=== PATIENT | male | born 1940 | race Caucasian/White ===

== ENCOUNTER → 2016-05-26 | Outpatient (CLI) | payer MEDICARE, BC ==
[~2016-05-26] MED LIST: AMBIEN 5MG TABLE5 MG PO; ASPIRIN 81M81 MG/TA2 PO; BACTRIM DS 8001 TAB PO; BIOTEN PO; BYSTOLIC5 MG PO; CARDI-OMEGA1000 MG PO; CARDURA 8MG TAB8 MG PO; DEPO-TESTOS100 MG/ML IM; FLAGYL500 MG PO; FLOMAX 0.40.4 MG/CAP PO; GLUCOPHAGE XR500 M1 PO; GLUCOPHAGE500 MG/TAB PO; GLUCOTROL 5M5 MG/TAB PO; LAMICTAL200 MG PO; LEVEMIR100 U/ML SQ; LIPITOR 10MG10 MG PO; LUTEIN6 MG OU; MAGNESIUM250 M1 PO; MASON NATURAL1200 MG PO; MIRAPEX0.25 MG PO; PROSCAR 5MG5 MG PO; PROZAC 20MG20 MG PO; RITALIN 20M20 MG/TAB PO; RITALIN10 MG PO; SINEMET 25/101 UDTAB PO; TESTOSTERONE CYP INJ; TESTOSTERONE INJ; VOLTAREN GEL 1%1 TU TP; ZESTRIL 10MG10 MG PO; ZOFRAN ODT4 MG PO
== END ==
LOC: SUN.DIA 05-13 11:41
DX: E11.65 Type 2 diabetes mellitus with hyperglycemia (principal); E11.40 Type 2 diabetes mellitus with diabetic neuropathy, unspecified; Z79.4 Long term (current) use of insulin; Z79.84 Long term (current) use of oral hypoglycemic drugs; Z68.33 Body mass index [BMI] 33.0-33.9, adult; E66.9 Obesity, unspecified; Z71.3 Dietary counseling and surveillance; E78.5 Hyperlipidemia, unspecified; I10 Essential (primary) hypertension

== ENCOUNTER 2016-06-06 06:16 | Emergency (ER) | payer MEDICARE, BC ==
[~2016-06-06] VITALS: Ht 188 cm; Wt 118.2 kg
[~2016-06-06 06:16] MED LIST changes: -ASPIRIN 81M81 MG/TA2 PO; -BACTRIM DS 8001 TAB PO; -BIOTEN PO; -CARDI-OMEGA1000 MG PO; -DEPO-TESTOS100 MG/ML IM; -FLAGYL500 MG PO; -FLOMAX 0.40.4 MG/CAP PO; -GLUCOPHAGE XR500 M1 PO; -GLUCOTROL 5M5 MG/TAB PO; -LEVEMIR100 U/ML SQ; -LUTEIN6 MG OU; -MAGNESIUM250 M1 PO; -MASON NATURAL1200 MG PO; -RITALIN 20M20 MG/TAB PO; -SINEMET 25/101 UDTAB PO; -TESTOSTERONE CYP INJ; -VOLTAREN GEL 1%1 TU TP; -ZESTRIL 10MG10 MG PO; -ZOFRAN ODT4 MG PO
[2016-06-06 06:19] VITALS: TEMP 98.3
[2016-06-06] MEDS ORDERED: GLUCOTROL 5M5 MG/TAB PO (06:27)
[2016-06-06] MEDS ORDERED: DEPO-TESTOS100 MG/ML IM (06:35)
[2016-06-06] MEDS ORDERED: GLUCOPHAGE XR500 M1 PO (06:37)
[2016-06-06] MEDS ORDERED: VOLTAREN GEL 1%1 TU TP (06:37)
[2016-06-06] MEDS ORDERED: LEVEMIR100 U/ML SQ (06:58)
[2016-06-06] MEDS ORDERED: SINEMET 25/101 UDTAB PO (07:01)
[2016-06-06 07:03] LABS: BASO % 0.3 % (0.0-2.0); EOS # 0.2 (0.0-0.7); EOS % 1.8 % (0-4.0); GRAN # 6.2 (1.4-6.5); GRAN % 63.4 % (42.2-75.2); HEMATOCRIT 44.7 % (42.0-52.0); LYMPH # 2.4 (1.2-3.4); LYMPH % 23.9 % (20.0-51.0); MEAN CELL VOLUME 90 fl (80.0-100.0); MEAN CORPUSCULAR HEMOGLOBIN 30 pg (27.0-31.0); MEAN CORPUSCULAR HGB CONC 34 g/dl (33.0-37.0); MEAN PLATELET VOLUME 10.7 fl (7.4-10.4); MONO % 10.1 % (1.7-9.3); PLATELET COUNT 214 K/mm3 (130-400); RED BLOOD COUNT 4.98 M/mm3 (4.20-5.60); REDCELL DISTRIBUTION WIDTH-CV 14.2 % (11.5-14.5); WHITE BLOOD COUNT 9.8 K/mm3 (4.8-10.8)
[2016-06-06] MEDS ORDERED: RITALIN 20M20 MG/TAB PO (07:04)
[2016-06-06] MEDS ORDERED: CARDI-OMEGA1000 MG PO (07:06)
[2016-06-06] MEDS ORDERED: FLOMAX 0.40.4 MG/CAP PO (07:10)
[2016-06-06 07:15] LABS: ADJUSTED CALCIUM 9.3 mg/dL (8.4-10.2); ALBUMIN 3.8 gm/dL (3.5-5.0); BILIRUBIN,TOTAL 0.8 mg/dL (0.0-1.0); CALCIUM 9.1 mg/dL (8.4-10.2); CREATININE, serum 1.04 mg/dL (0.66-1.25); POTASSIUM 4.2 mmol/L (3.4-5.0); TOTAL PROTEIN 6.6 gm/dL (6.4-8.2)
[2016-06-06 07:29] LABS: PH 5 (5-8); SQUAMOUS EPITHELIAL 0-2 /hpf; URINE APPEARANCE Clear; URINE BACTERIA None Seen /hpf; URINE BILIRUBIN Negative (NEGATIVE); URINE BLOOD Negative (NEGATIVE); URINE COLOR Yellow; URINE GLUCOSE 3+ (NEGATIVE); URINE KETONE Negative (NEGATIVE); URINE RBC 0-2 /hpf; URINE UROBILINOGEN Negative (NEGATIVE); URINE WBC 0-2 /hpf
[2016-06-06] MEDS ORDERED: BACTRIM DS 8001 TAB PO (08:37)
[2016-06-06] MEDS ORDERED: FLAGYL500 MG PO (08:37)
[2016-06-06] MEDS ORDERED: ZOFRAN ODT4 MG PO (08:38)
[2016-06-06 08:55] VITALS: BP 152/94; PULSE 75
== END 2016-06-06 08:55 | disposition home or self-care (01) ==
LOC: COL.ER 06:16
PROVIDERS: Family Medicine
DX: K57.32 Diverticulitis of large intestine without perforation or abscess without bleeding (principal); E11.9 Type 2 diabetes mellitus without complications; I10 Essential (primary) hypertension
CPT/HCPCS: J7030; Q9967

== ENCOUNTER → 2016-08-26 | Outpatient (CLI) | payer MEDICARE, BC ==
[~2016-08-26] MED LIST changes: +ASPIRIN 81M81 MG/TA2 PO; +BACTRIM DS 8001 TAB PO; +BIOTEN PO; +CARDI-OMEGA1000 MG PO; +DEPO-TESTOS100 MG/ML IM; +FLAGYL500 MG PO; +FLOMAX 0.40.4 MG/CAP PO; +GLUCOPHAGE XR500 M1 PO; +GLUCOTROL 5M5 MG/TAB PO; +LEVEMIR100 U/ML SQ; +LUTEIN6 MG OU; +MAGNESIUM250 M1 PO; +MASON NATURAL1200 MG PO; +RITALIN 20M20 MG/TAB PO; +SINEMET 25/101 UDTAB PO; +TESTOSTERONE CYP INJ; +VOLTAREN GEL 1%1 TU TP; +ZESTRIL 10MG10 MG PO; +ZOFRAN ODT4 MG PO
== END ==
LOC: SUN.DIA 11:57
DX: E11.40 Type 2 diabetes mellitus with diabetic neuropathy, unspecified (principal); Z79.4 Long term (current) use of insulin; E78.5 Hyperlipidemia, unspecified; I10 Essential (primary) hypertension; E66.9 Obesity, unspecified; Z71.3 Dietary counseling and surveillance; Z87.891 Personal history of nicotine dependence

== ENCOUNTER → 2016-09-01 | Outpatient (CLI) | payer MEDICARE, BC | LOC: BHSO 15:22 | DX: F41.1 Generalized anxiety disorder (principal) ==

== ENCOUNTER 2016-09-29 07:01 | Day surgery (SDC) | payer MEDICARE, BC ==
[2016-09-29] VITALS (7 sets, daily range): BP systolic 93–146; BP diastolic 50–87; PULSE 67–75; TEMP 98.9
[~2016-09-29] VITALS: Ht 188 cm; Wt 116.6 kg
[~2016-09-29 07:01] MED LIST changes: -ASPIRIN 81M81 MG/TA2 PO; -BIOTEN PO; -LUTEIN6 MG OU; -MAGNESIUM250 M1 PO; -MASON NATURAL1200 MG PO; -TESTOSTERONE CYP INJ; -ZESTRIL 10MG10 MG PO
[2016-09-29] MEDS ORDERED: MASON NATURAL1200 MG PO (08:53)
[2016-09-29] MEDS ORDERED: ASPIRIN 81M81 MG/TA2 PO (08:55)
[2016-09-29] MEDS ORDERED: MAGNESIUM250 M1 PO (08:57)
[2016-09-29] MEDS ORDERED: LUTEIN6 MG OU (08:58)
[2016-09-29] MEDS ORDERED: MIRAPEX0.25 MG PO (09:01)
[2016-09-29] MEDS ORDERED: BIOTEN PO (09:04)
[2016-09-29] MEDS ORDERED: TESTOSTERONE CYP INJ (09:09)
[2016-09-29] MEDS ORDERED: ZESTRIL 10MG10 MG PO (09:10)
== END 2016-09-29 10:37 | disposition home or self-care (01) ==
LOC: SDCO 07:01
DX: Z12.11 Encounter for screening for malignant neoplasm of colon (principal); K57.30 Diverticulosis of large intestine without perforation or abscess without bleeding; K64.0 First degree hemorrhoids; G47.33 Obstructive sleep apnea (adult) (pediatric); I10 Essential (primary) hypertension; E11.40 Type 2 diabetes mellitus with diabetic neuropathy, unspecified; L40.9 Psoriasis, unspecified; Z79.4 Long term (current) use of insulin
CPT/HCPCS: OP; J2250; J2405; J3010; J7030

== ENCOUNTER → 2016-12-23 | Outpatient (CLI) | payer MEDICARE, BC ==
[~2016-12-23] MED LIST changes: +ASPIRIN 81M81 MG/TA2 PO; +BIOTEN PO; +LUTEIN6 MG OU; +MAGNESIUM250 M1 PO; +MASON NATURAL1200 MG PO; +TESTOSTERONE CYP INJ; +ZESTRIL 10MG10 MG PO
== END ==
LOC: BHSO 16:03
DX: F31.73 Bipolar disorder, in partial remission, most recent episode manic (principal)

== ENCOUNTER → 2016-12-30 | Outpatient (CLI) | payer MEDICARE, BC | LOC: SUN.DIA 10:53 | DX: E11.40 Type 2 diabetes mellitus with diabetic neuropathy, unspecified (principal); Z79.4 Long term (current) use of insulin; E78.5 Hyperlipidemia, unspecified; I10 Essential (primary) hypertension; E66.9 Obesity, unspecified; Z68.33 Body mass index [BMI] 33.0-33.9, adult; Z71.3 Dietary counseling and surveillance; Z87.891 Personal history of nicotine dependence | CPT/HCPCS: G0108 ==

== ENCOUNTER → 2017-06-08 | Outpatient (CLI) | payer MEDICARE, BC ==
[~2017-06-08] MED LIST changes: +BYSTOLIC10 MG PO; +FISH OIL 1000MG1 CAP PO; +LIPITOR20 MG PO; +OMNICEF 300MG300 MG PO; +PHENERGAN W/CO120 M1 PO; +PRINIVIL20 MG PO; +TAMIFLU 75MG75 MG PO
== END ==
LOC: BHSO 09:01
DX: F90.0 Attention-deficit hyperactivity disorder, predominantly inattentive type (principal)
CPT/HCPCS: G0463

== ENCOUNTER 2017-06-21 08:00 | Outpatient (RCR) | payer MEDICARE | END 2017-07-19 13:48 | disposition home or self-care (01) | LOC: MKS.ESL.PT 08:00 | DX: E11.42 Type 2 diabetes mellitus with diabetic polyneuropathy (principal) ==

== ENCOUNTER 2017-07-13 12:30 | Outpatient (RCR) | payer MEDICARE, BC | END 2017-07-19 13:48 | disposition home or self-care (01) | LOC: MKS.ESL.PT 12:30 | DX: E11.42 Type 2 diabetes mellitus with diabetic polyneuropathy (principal); R26.89 Other abnormalities of gait and mobility | CPT/HCPCS: G8990-GP; G8991-GP; G8992-GP ==

== ENCOUNTER 2017-07-28 08:25 | Outpatient (CLI) | payer MEDICARE, BC ==
[~2017-07-28] VITALS: Ht 188 cm; Wt 116.0 kg
[2017-07-28 08:30] VITALS: BP 140/78; PULSE 64; TEMP 98.3
[2017-07-28] MEDS ORDERED: PRINIVIL10 MG PO (08:49)
[2017-07-28] MEDS ORDERED: MAXIMUM D310000 IU PO (08:50)
[2017-07-28] MEDS ORDERED: ARICEPT 5MG PO (08:52)
[2017-07-28] MEDS ORDERED: MELATONIN5 M1 PO (08:53)
[2017-07-28] MEDS ORDERED: CEPHALEXIN500 M1 PO (09:21)
[2017-07-28 09:54] VITALS: BP 134/73; PULSE 71; TEMP 98.2
== END 2017-07-28 09:58 | disposition home or self-care (01) ==
LOC: COL.CAR 08:25
DX: I48.0 Paroxysmal atrial fibrillation (principal); R55 Syncope and collapse; I10 Essential (primary) hypertension; G47.00 Insomnia, unspecified; F32.9 Major depressive disorder, single episode, unspecified; G20 Parkinson's disease; N40.0 Benign prostatic hyperplasia without lower urinary tract symptoms; E11.42 Type 2 diabetes mellitus with diabetic polyneuropathy; K76.0 Fatty (change of) liver, not elsewhere classified; I08.3 Combined rheumatic disorders of mitral, aortic and tricuspid valves; E78.2 Mixed hyperlipidemia; I49.1 Atrial premature depolarization; I47.2 Ventricular tachycardia; Z79.4 Long term (current) use of insulin; Z79.52 Long term (current) use of systemic steroids; Z98.52 Vasectomy status; Z88.1 Allergy status to other antibiotic agents; Z88.8 Allergy status to other drugs, medicaments and biological substances; Z85.828 Personal history of other malignant neoplasm of skin; Z82.49 Family history of ischemic heart disease and other diseases of the circulatory system; Z82.3 Family history of stroke; Z87.891 Personal history of nicotine dependence

== ENCOUNTER → 2017-11-11 | Outpatient (CLI) | payer MEDICARE, BC ==
[~2017-11-11] MED LIST changes: +ARICEPT 5MG PO; +CEPHALEXIN500 M1 PO; +MAXIMUM D310000 IU PO; +MELATONIN5 M1 PO; +PRINIVIL10 MG PO
== END ==
LOC: BHSO 14:45
DX: F90.0 Attention-deficit hyperactivity disorder, predominantly inattentive type (principal)
CPT/HCPCS: G0463

== ENCOUNTER → 2018-01-11 | Outpatient (CLI) | payer MEDICARE, BC | LOC: BHSO 14:15 | DX: F90.0 Attention-deficit hyperactivity disorder, predominantly inattentive type (principal) | CPT/HCPCS: G0463 ==

== ENCOUNTER → 2018-03-10 | Outpatient (CLI) | payer MEDICARE, BC | LOC: BHSO 14:21 | DX: F90.0 Attention-deficit hyperactivity disorder, predominantly inattentive type (principal) | CPT/HCPCS: G0463 ==

== ENCOUNTER → 2018-05-09 | Outpatient (CLI) | payer MEDICARE, BC | LOC: COL.RAD 13:52 | DX: G20 Parkinson's disease (principal); E11.42 Type 2 diabetes mellitus with diabetic polyneuropathy; G25.81 Restless legs syndrome ==

== ENCOUNTER → 2018-05-10 | Outpatient (CLI) | payer MEDICARE, BC | LOC: BHSO 13:59 | DX: F33.41 Major depressive disorder, recurrent, in partial remission (principal) | CPT/HCPCS: G0463 ==

== ENCOUNTER 2018-08-05 13:24 | Emergency (ER) | payer MEDICARE, BC ==
[~2018-08-05] VITALS: Ht 185.4 cm; Wt 113.6 kg
[2018-08-05 13:29] VITALS: TEMP 98.8
[2018-08-05 16:40] VITALS: BP 118/64; PULSE 67
== END 2018-08-05 16:50 | disposition home or self-care (01) ==
LOC: COL.ER 13:24
DX: S06.0X0A Concussion without loss of consciousness, initial encounter (principal); S93.402A Sprain of unspecified ligament of left ankle, initial encounter; S80.02XA Contusion of left knee, initial encounter; S00.81XA Abrasion of other part of head, initial encounter; E11.42 Type 2 diabetes mellitus with diabetic polyneuropathy; I48.91 Unspecified atrial fibrillation; F90.9 Attention-deficit hyperactivity disorder, unspecified type; G20 Parkinson's disease; Z79.01 Long term (current) use of anticoagulants; Z79.4 Long term (current) use of insulin; Z79.82 Long term (current) use of aspirin; Z87.891 Personal history of nicotine dependence; W10.9XXA Fall (on) (from) unspecified stairs and steps, initial encounter

== ENCOUNTER → 2018-11-24 | Outpatient (CLI) | payer MEDICARE, BC | LOC: BHSO 09:21 | DX: F33.41 Major depressive disorder, recurrent, in partial remission (principal) | CPT/HCPCS: G0463 ==

== ENCOUNTER 2019-01-10 16:49 | Inpatient (IN) | payer MEDICARE, BC ==
[~2019-01-10] VITALS: Ht 188 cm; Wt 118.0 kg
[2019-01-10 17:33] LABS: HEMATOCRIT 38.1 % (42.0-52.0); HEMOGLOBIN 12.3 g/dl (13.5-18.0); MEAN CELL VOLUME 87 fl (80.0-100.0); MEAN CORPUSCULAR HEMOGLOBIN 28 pg (27.0-31.0); MEAN CORPUSCULAR HGB CONC 32 g/dl (33.0-37.0); MEAN PLATELET VOLUME 10.5 fl (7.4-10.4); PLATELET COUNT 206 K/mm3 (130-400); RED BLOOD COUNT 4.38 M/mm3 (4.20-5.60); REDCELL DISTRIBUTION WIDTH-CV 14.6 % (11.5-14.5)
[2019-01-10 17:37] LABS: PROTHROMBIN TIME 11.6 SECONDS (9.7-12.8)
[2019-01-10 17:40] LABS: PARTIAL THROMBOPLASTIN TIME 27.8 SECONDS (26.0-37.0)
[2019-01-10 17:41] LABS: ALANINE AMINOTRANSFERASE 17 U/L (21-72); ALBUMIN 4.3 gm/dL (3.5-5.0); ALKALINE PHOSPHATASE 76 U/L (50-136); ANION GAP 10 mmol/L (7-16); AST,SGOT 32 U/L (15-37); BILIRUBIN,TOTAL 0.3 mg/dL (0.0-1.0); BLOOD UREA NITROGEN 35 mg/dL (9-20); C-REACTIVE PROTEIN 0.8 mg/dL (0.0-0.9); CALCIUM 9.6 mg/dL (8.4-10.2); CARBON DIOXIDE 24 mmol/L (22-30); CHLORIDE 103 mmol/L (98-107); CREATININE, serum 1.95 (0.66-1.25); GLUCOSE 326 mg/dL (74-106); POTASSIUM 5.2 mmol/L (3.4-5.0); SODIUM 137 mmol/L (137-145)
[2019-01-10 17:50] LABS: TROPONIN-I < 0.012 ng/mL (0.000-0.035)
[2019-01-10 18:01] LABS: ANISOCYTOSIS 1+; BAND 2 % (0-10); EOSINOPHIL 1 % (0-4); LYMPHOCYTE 18 % (20.0-51.0); METAMYELOCYTE 1 % (0-0); MICROCYTOSIS 1+; NEUTROPHILS 72 % (42.0-75.2); OVALOCYTES 1+; PLATELET ESTIMATE NORMAL (NORMAL); STOMATOCYTE 1+
[2019-01-10 18:02] LABS: POIKILOCYTOSIS 1+
--- NOTE | 2019-01-10 19:45 | NUR ---
Pt arrived to room 309, transfered by ED staff. at bedside. Pt awake, a&o, cooperative c cares. INTx2 patent; heparin gtt infusing. Pt/wi oriented to room, unit policies et current POC. Questions invited et answered, both verbalize understanding. Pt denies needs at this time. Call light in reach. Will continue c admit process.
[2019-01-10 21:07] VITALS: BP 103/74; PULSE 88; TEMP 98.2
[2019-01-10] MEDS ORDERED: BYSTOLIC20 MG PO (21:07)
[2019-01-10] MEDS ORDERED: ZOLOFT 100MG100 MG PO (21:22)
[2019-01-10] MEDS ORDERED: BIOTIN5000 MCG PO (21:23)
[2019-01-10] MEDS ORDERED: VITAMIN D32000 I1 PO (21:27)
[2019-01-10 23:31] LABS: ARTERIAL BLD GAS O2 SATURATION 94.5 % (92-100); ARTERIAL BLD GAS TCO2 CT 22.8; ARTERIAL BLOOD GAS BASE EXCESS -3.5 (-2-2); ARTERIAL BLOOD GAS HCO3 21.6 meq/L (22-26); ARTERIAL BLOOD GAS PCO2 39.4 mmHg (35-45); ARTERIAL BLOOD GAS PO2 75.8 mmHg (80-100); ARTERIAL BLOOD GAS pH 7.36 (7.35-7.45)
[2019-01-10 23:41] VITALS: BP 103/60; PULSE 90; TEMP 98.1
[2019-01-11 02:33] LABS: COLLECTION METHOD CLEAN CATCH
[2019-01-11 02:41] LABS: MUCOUS Present /lpf; PH 5 (5-8); SQUAMOUS EPITHELIAL None Seen /hpf; URINE APPEARANCE Clear; URINE BACTERIA None Seen /hpf; URINE BILIRUBIN Negative (NEGATIVE); URINE BLOOD Negative (NEGATIVE); URINE COLOR Yellow; URINE GLUCOSE 2+ (NEGATIVE); URINE KETONE Negative (NEGATIVE); URINE LEUKOCYTE ESTERASE Negative (NEGATIVE); URINE NITRATE Negative (NEGATIVE); URINE PROTEIN(semi-quant) Negative (NEGATIVE); URINE RBC 0-2 /hpf; URINE UROBILINOGEN Negative (NEGATIVE)
[2019-01-11 04:08] VITALS: BP 97/57; PULSE 79; TEMP 98.3
[2019-01-11 04:08] LABS: CREATININE, serum 1.42 (0.66-1.25)
[2019-01-11 04:28] LABS: FRACTIONAL EXCRETION OF NA+ 1.9 %
[2019-01-11 06:33] LABS: HEMOGLOBIN 10.8 g/dl (13.5-18.0); MEAN CELL VOLUME 87 fl (80.0-100.0); MEAN CORPUSCULAR HEMOGLOBIN 28 pg (27.0-31.0); MEAN CORPUSCULAR HGB CONC 32 g/dl (33.0-37.0); MEAN PLATELET VOLUME 10.6 fl (7.4-10.4); PLATELET COUNT 160 K/mm3 (130-400); REDCELL DISTRIBUTION WIDTH-CV 14.8 % (11.5-14.5)
[2019-01-11 07:15] LABS: CALCIUM 8.6 mg/dL (8.4-10.2); CREATININE, serum 1.37 (0.66-1.25); POTASSIUM 4.6 mmol/L (3.4-5.0)
[2019-01-11 07:37] LABS: BAND 7 % (0-10); BASOPHIL 1 % (0-2); EOSINOPHIL 4 % (0-4); LYMPHOCYTE 16 % (20.0-51.0); METAMYELOCYTE 1 % (0-0); NEUTROPHILS 69 % (42.0-75.2); PLATELET ESTIMATE NORMAL (NORMAL)
[2019-01-11 08:10] VITALS: BP 114/83; PULSE 69; TEMP 97.5
--- NOTE | 2019-01-11 11:00 | NUR ---
PACER INTERIGATION HAS BEEN PERFORMED AT THIS TIME.
--- NOTE | 2019-01-11 12:04 | NUR ---
SW met with the patient to discuss discharge plan. The patient lives in [place] with his , Adelina (ph#[phone]). He reports independence with ADLs and has a cane. The patient's PCP is Dr. Sugar Yousif and he receives his medications at [facility]. He reports no difficulties obtaining his meds. The patient's advanced directives are in EMR. His DPOA-HC is his and the alternate is his son, Lukasz Lee. The patient plans to return home upon discharge. The patient is currently on 2 liters of oxygen. SW to continue to monitor.
[2019-01-11 12:05] VITALS: BP 131/64; PULSE 63; TEMP 97.5
--- NOTE | 2019-01-11 13:29 | NUR ---
POST VOID BLADDER SCAN PERFOMED BY THIS NURSE. PT HAD 75ML OF URINE NOTED.
[2019-01-11 17:30] VITALS: BP 121/74; PULSE 61; TEMP 97.8
[2019-01-11 19:10] VITALS: BP 108/46; PULSE 73; TEMP 97.4
--- NOTE | 2019-01-11 19:23 | NUR ---
PT HAD UNEVENTFUL DAY. PLEASENT AND COOPERATIVE CARES. THIS NURSE PROVIDED PRINTED OFF EDUCATION ABOUT DX AND MEDICATION STARTED TODAY.
--- NOTE | 2019-01-11 20:45 | NUR ---
Shift assessment complete. Patient in bed, awake. at bedside. States, 7/10 pain in right hip. States the day RN gave him tylenol and it was not effective. Tylenol not documented in eMAR, or [facility] that it was given. Notified Dr. Hyatt for additional order for pain medicine d/t it being unclear whether he got tylenol or not. Prn norco ordered, and given. Patient ok with plan. Denies further needs at this time. Will continue to monitor.
[2019-01-12 00:09] VITALS: BP 102/50; PULSE 64; TEMP 98
[2019-01-12 03:20] VITALS: BP 128/49; PULSE 63; TEMP 97.8
--- NOTE | 2019-01-12 04:08 | NUR ---
Patient in bed, awake. States pain 2/10 after pain medication. Denies further needs at this time. Will continue to monitor.
[2019-01-12 07:11] LABS: MEAN CELL VOLUME 88 fl (80.0-100.0); MEAN CORPUSCULAR HEMOGLOBIN 28 pg (27.0-31.0); MEAN CORPUSCULAR HGB CONC 31 g/dl (33.0-37.0); MEAN PLATELET VOLUME 9.9 fl (7.4-10.4); PLATELET COUNT 142 K/mm3 (130-400); RED BLOOD COUNT 3.62 M/mm3 (4.20-5.60); REDCELL DISTRIBUTION WIDTH-CV 14.9 % (11.5-14.5)
[2019-01-12 07:15] LABS: HEMATOCRIT 31.8 % (42.0-52.0)
[2019-01-12 07:29] LABS: CALCIUM 8.6 mg/dL (8.4-10.2); CREATININE, serum 1.3 (0.66-1.25); POTASSIUM 4.5 mmol/L (3.4-5.0)
[2019-01-12 07:53] LABS: BAND 3 % (0-10); EOSINOPHIL 2 % (0-4); NEUTROPHILS 71 % (42.0-75.2); PLATELET ESTIMATE NORMAL (NORMAL)
[2019-01-12 07:54] LABS: LYMPHOCYTE 21 % (20.0-51.0)
[2019-01-12 07:55] LABS: OVALOCYTES 1+; POLYCHROMASIA 1+; TEAR DROP CELLS 1+
[2019-01-12 08:00] VITALS: BP 112/59; PULSE 60; TEMP 97.9
--- NOTE | 2019-01-12 10:42 | NUR ---
Initial visit; Patient and his appeared pleased to have a visit from Arresting Gear Operator. A lively conversation with spiritual overtones ensued. Patient loves to talk and seemed to enjoy the diversion from his health issues. Arresting Gear Operator wished them well and offered God's blessings.
[2019-01-12 11:32] VITALS: BP 142/74; PULSE 59; TEMP 98.3
--- NOTE | 2019-01-12 16:25 | NUR ---
PT HAD C/O PAIN IN LT HIP, GAVE PAIN MED. PT REQUESTED TO WALK IN [place]. DID WELL USED A 4 WHEELED WALKER WITHOUT ISSUE. MADE PT A HOT PACK FOR PAIN. NO OTHER ISSUES VOICED.
[2019-01-12 16:26] VITALS: BP 116/60; PULSE 63; TEMP 97.9
--- NOTE | 2019-01-12 19:21 | NUR ---
PT HAD UNEVENTFUL DAY. PLEASENT AND COOPERATIVE WITH CARES. NOTIFIED NOC NURSE OF PT NEEDING A CPAP FOR THE NIGHT. PT HAS HAD 02 OFF AND ON THROUGHT THE DAY PRN. SATS DOCUMENTED. NO OTHER ISSUES OR CONCERNS VOICED.
[2019-01-12 19:56] VITALS: BP 128/60; PULSE 66; TEMP 97.7
--- NOTE | 2019-01-12 20:30 | NUR ---
Initial shift assessment done- states does have some right hip pain 05/22- states would like another [place] closer to bedtime, will have respiratory get a CPAP for him to use tonight per orders, INT fell out- new one started in left hand- 22 g
[2019-01-13 00:02] VITALS: BP 145/78; PULSE 59; TEMP 97.3
--- NOTE | 2019-01-13 04:30 | NUR ---
Anxious this morning- states he cant sleep- states right hip pain 10/22,,will give [place] as ordered, at bedside - did wear CPAP for about 2-3 hours but could not tolerate more due to the large confining mask on out CPAPS-, o2 sats 94% on 2L/nc. tele on
[2019-01-13 04:36] VITALS: BP 119/66; PULSE 60
[2019-01-13 07:47] VITALS: BP 125/76; PULSE 61; TEMP 97.5
[2019-01-13 08:36] LABS: BASO % 0.4 % (0.0-2.0); EOS # 0.2 (0.0-0.7); EOS % 2.7 % (0-4.0); GRAN # 5.2 (1.4-6.5); GRAN % 69.7 % (42.2-75.2); HEMOGLOBIN 11.2 g/dl (13.5-18.0); LYMPH # 1.2 (1.2-3.4); LYMPH % 16.3 % (20.0-51.0); MEAN CELL VOLUME 89 fl (80.0-100.0); MEAN CORPUSCULAR HEMOGLOBIN 28 pg (27.0-31.0); MEAN CORPUSCULAR HGB CONC 32 g/dl (33.0-37.0); MEAN PLATELET VOLUME 10.2 fl (7.4-10.4); MONO # 0.7 (0.1-0.6); MONO % 9.2 % (1.7-9.3); PLATELET COUNT 163 K/mm3 (130-400); RED BLOOD COUNT 4.02 M/mm3 (4.20-5.60); REDCELL DISTRIBUTION WIDTH-CV 15.2 % (11.5-14.5)
[2019-01-13 08:37] LABS: HEMATOCRIT 35.6 % (42.0-52.0)
[2019-01-13] MEDS ORDERED: XARELTO20 MG PO (09:00)
[2019-01-13] MEDS ORDERED: XARELTO15 MG PO (09:00)
[2019-01-13 09:01] LABS: CALCIUM 9.3 mg/dL (8.4-10.2); CREATININE, serum 1.3 (0.66-1.25); POTASSIUM 4.6 mmol/L (3.4-5.0)
--- NOTE | 2019-01-13 09:14 | NUR ---
SW attended clinical rounds with the team. A pulse oximetry was ordered. TRISTAN will continue to follow.
--- NOTE | 2019-01-13 09:23 | NUR ---
PT SPO2 83% AT REST ON ROOM AIR. PT PLACED ON 3L O2 VIA NC FOR SPO2 TO 92% PT NOT AMBULATED DUE TO DECREASED SPO2 AT REST.
--- NOTE | 2019-01-13 09:36 | NUR ---
SW presented the IM form to the patient. The patient understood and signed the form. Original was placed in the chart and a copy was provided to the patient. TRISTAN will continue to follow.
--- NOTE | 2019-01-13 10:56 | NUR ---
The patient is to discharge home today, 01/13. Oxygen is being recommended for the patient. TRISTAN met with the patient and his to present the DME choice form, their choice is [facility]. DME Form was placed in the chart. TRISTAN faxed the order to Margot at [facility]. Margot reports they did receive the order and she will begin to process it. There are no additional needs at this time.
--- NOTE | 2019-01-13 16:32 | NUR ---
Patient discharging, paperwork reviewed as long as instructions and medication information. These were discussed with and . Patient discharged at 1600 after home oxygen supply came to bring a travel tank for transport. Personal belongings gathered and taken with patient. Assisted to private vehicle via wheelchair and accompanied by via [facility] emergency department staff.
== END 2019-01-13 16:00 | disposition home or self-care (01) | DRG 175 ==
LOC: COL.ER 16:49 → MEDICAL 18:11
PROVIDERS: Emergency Medicine; Nurse Practitioner Family; Physician Assistant; ADMIT Student in an Organized Health Care Education/Training Program
PROC: 5A09457 Assistance with Respiratory Ventilation, 24-96 Consecutive Hours, Continuous Positive Airway Pressure (ICD-10-PCS; principal; 2019-01-10)
DX: I26.99 Other pulmonary embolism without acute cor pulmonale (principal); J96.91 Respiratory failure, unspecified with hypoxia; I82.401 Acute embolism and thrombosis of unspecified deep veins of right lower extremity; N17.9 Acute kidney failure, unspecified; I10 Essential (primary) hypertension; E78.5 Hyperlipidemia, unspecified; E11.42 Type 2 diabetes mellitus with diabetic polyneuropathy; G47.33 Obstructive sleep apnea (adult) (pediatric); F41.9 Anxiety disorder, unspecified; D64.9 Anemia, unspecified; G20 Parkinson's disease; N40.0 Benign prostatic hyperplasia without lower urinary tract symptoms; F90.9 Attention-deficit hyperactivity disorder, unspecified type; E87.5 Hyperkalemia; I48.0 Paroxysmal atrial fibrillation; Z87.891 Personal history of nicotine dependence; F03.90 Unspecified dementia, unspecified severity, without behavioral disturbance, psychotic disturbance, mood disturbance, and anxiety; Z79.4 Long term (current) use of insulin; Z79.82 Long term (current) use of aspirin; Z88.1 Allergy status to other antibiotic agents; Z88.8 Allergy status to other drugs, medicaments and biological substances
CPT/HCPCS: 99223-AI; 99233-AI; 99239; A9540; A9567; C9113; J1644; J1815; J7030

== ENCOUNTER → 2019-03-31 | Outpatient (CLI) | payer MEDICARE, BC ==
[~2019-03-31] MED LIST changes: +BIOTIN5000 MCG PO; +BYSTOLIC20 MG PO; +VITAMIN D32000 I1 PO; +XARELTO15 MG PO; +XARELTO20 MG PO; +ZOLOFT 100MG100 MG PO
== END ==
LOC: COL.VAS 13:54
DX: I82.531 Chronic embolism and thrombosis of right popliteal vein (principal)

== ENCOUNTER → 2019-07-13 | Outpatient (CLI) | payer MEDICARE, BC ==
[2019-07-13 11:43] LABS: CALCIUM 9.5 mg/dL (8.4-10.2); CREATININE, serum 1.18 (0.66-1.25); POTASSIUM 4.6 mmol/L (3.4-5.0)
== END ==
LOC: COL.RAD 10:43
PROVIDERS: Internal Medicine Pulmonary Disease
DX: I82.409 Acute embolism and thrombosis of unspecified deep veins of unspecified lower extremity (principal); I27.82 Chronic pulmonary embolism; K80.20 Calculus of gallbladder without cholecystitis without obstruction; K44.9 Diaphragmatic hernia without obstruction or gangrene; K76.0 Fatty (change of) liver, not elsewhere classified; E11.9 Type 2 diabetes mellitus without complications
CPT/HCPCS: Q9967

== ENCOUNTER → 2019-09-11 | Outpatient (CLI) | payer MEDICARE, BC | LOC: BHSO 15:28 | DX: F33.41 Major depressive disorder, recurrent, in partial remission (principal) | CPT/HCPCS: G0463 ==

== ENCOUNTER → 2019-11-29 | Outpatient (CLI) | payer MEDICARE, BC | LOC: BHSO 14:43 | DX: F90.0 Attention-deficit hyperactivity disorder, predominantly inattentive type (principal) | CPT/HCPCS: G0463 ==

== ENCOUNTER → 2020-02-29 | Outpatient (CLI) | payer MEDICARE, BC ==
[2020-02-29 16:01] LABS: CALCIUM 9.4 mg/dL (8.4-10.2); CREATININE, serum 1.09 (0.66-1.25); POTASSIUM 4.8 mmol/L (3.4-5.0)
== END ==
LOC: COL.LAB 15:03
PROVIDERS: Internal Medicine Pulmonary Disease
DX: I82.90 Acute embolism and thrombosis of unspecified vein (principal)

== ENCOUNTER → 2020-03-04 | Outpatient (CLI) | payer MEDICARE, BC | LOC: COL.RAD 12:54 | DX: I27.82 Chronic pulmonary embolism (principal); K44.9 Diaphragmatic hernia without obstruction or gangrene; K80.20 Calculus of gallbladder without cholecystitis without obstruction | CPT/HCPCS: Q9967 ==

== ENCOUNTER → 2020-03-13 | Outpatient (CLI) | payer MEDICARE, BC | LOC: COL.VAS 13:28 | DX: I82.90 Acute embolism and thrombosis of unspecified vein (principal); I51.7 Cardiomegaly; I34.0 Nonrheumatic mitral (valve) insufficiency; Z86.718 Personal history of other venous thrombosis and embolism ==

== ENCOUNTER 2020-12-28 10:03 | Emergency (ER) | payer MEDICARE, BC ==
[~2020-12-28] VITALS: Ht 188 cm; Wt 118.2 kg
[2020-12-28 10:10] VITALS: TEMP 99
[2020-12-28 11:45] VITALS: BP 135/80; PULSE 74
== END 2020-12-28 11:47 | disposition home or self-care (01) ==
LOC: COL.ER 10:03
DX: S63.602A Unspecified sprain of left thumb, initial encounter (principal); G20 Parkinson's disease; I10 Essential (primary) hypertension; E11.40 Type 2 diabetes mellitus with diabetic neuropathy, unspecified; I48.91 Unspecified atrial fibrillation; Z87.891 Personal history of nicotine dependence; Z79.01 Long term (current) use of anticoagulants; Z79.4 Long term (current) use of insulin; Z79.84 Long term (current) use of oral hypoglycemic drugs; Z79.82 Long term (current) use of aspirin; W01.0XXA Fall on same level from slipping, tripping and stumbling without subsequent striking against object, initial encounter

== ENCOUNTER 2021-04-23 10:11 | Emergency (ER) | payer MEDICARE, BC ==
[~2021-04-23] VITALS: Ht 185.4 cm; Wt 90.9 kg
[2021-04-23 10:31] VITALS: TEMP 98.5
[2021-04-23 11:11] LABS: BASO % 0.3 % (0.0-2.0); EOS # 0.2 K/mm3 (0.0-0.7); EOS % 3.1 % (0.0-4.0); GRAN # 4.8 K/mm3 (1.4-6.5); GRAN % 73.8 % (42.2-75.2); HEMATOCRIT 42.4 % (42.0-52.0); HEMOGLOBIN 13.3 g/dl (13.5-18.0); LYMPH # 0.9 K/mm3 (1.2-3.4); LYMPH % 14.2 % (20.0-51.0); MEAN CELL VOLUME 91 fl (80.0-100.0); MEAN CORPUSCULAR HEMOGLOBIN 29 pg (27-31); MEAN CORPUSCULAR HGB CONC 31 g/dl (33.0-37.0); MONO # 0.5 K/mm3 (0.1-0.6); MONO % 7.8 % (1.7-9.3); PLATELET COUNT 149 K/mm3 (130-400); RED BLOOD COUNT 4.66 M/mm3 (4.20-5.60); REDCELL DISTRIBUTION WIDTH-CV 17.7 % (11.5-14.5)
[2021-04-23 11:25] LABS: ALBUMIN 4.2 gm/dL (3.4-4.8); BILIRUBIN,TOTAL 0.5 mg/dL (0.2-1.2); CREATININE, serum 1.65 mg/dL (0.72-1.25); POTASSIUM 4.3 mmol/L (3.5-4.5); TOTAL PROTEIN 6.8 gm/dL (6.2-8.1)
[2021-04-23] MEDS ORDERED: NOVOLOG FLEX100 U/ML SQ (11:39)
[2021-04-23] MEDS ORDERED: CONCERTA18 MG (11:40)
[2021-04-23] MEDS ORDERED: MYRBETR50MG PO (11:41)
[2021-04-23] MEDS ORDERED: VESICARE10 MG (11:41)
[2021-04-23] MEDS ORDERED: DESYREL 50MG50 MG PO (11:41)
[2021-04-23] MEDS ORDERED: FISH OIL 1000MG1 CAP PO (11:43)
[2021-04-23] MEDS ORDERED: FEOSOL45 MG (11:43)
[2021-04-23 12:45] VITALS: BP 133/58; PULSE 60
[2021-04-23] MEDS ORDERED: ZITHROMAX Z PA250 MG PO (12:49)
== END 2021-04-23 13:03 | disposition home or self-care (01) ==
LOC: COL.ER 10:11
PROVIDERS: Family Medicine
DX: J20.9 Acute bronchitis, unspecified (principal); I10 Essential (primary) hypertension; E11.40 Type 2 diabetes mellitus with diabetic neuropathy, unspecified; I48.91 Unspecified atrial fibrillation; G20 Parkinson's disease; Z99.81 Dependence on supplemental oxygen; Z88.1 Allergy status to other antibiotic agents; Z20.822 Contact with and (suspected) exposure to COVID-19; Z79.01 Long term (current) use of anticoagulants; Z79.4 Long term (current) use of insulin; Z79.84 Long term (current) use of oral hypoglycemic drugs; Z79.82 Long term (current) use of aspirin; Z79.899 Other long term (current) drug therapy
CPT/HCPCS: J7120

== ENCOUNTER 2021-11-09 16:06 | Emergency (ER) | payer MEDICARE, BC ==
[~2021-11-09] VITALS: Ht 185.4 cm; Wt 122.7 kg
[~2021-11-09 16:06] MED LIST changes: +CONCERTA18 MG; +DESYREL 50MG50 MG PO; +FEOSOL45 MG; +MYRBETR50MG PO; +NOVOLOG FLEX100 U/ML SQ; +VESICARE10 MG; +ZITHROMAX Z PA250 MG PO
[2021-11-09 16:16] VITALS: TEMP 97.1
[2021-11-09 17:33] LABS: BASO % 0.3 % (0.0-2.0); EOS # 0.2 K/mm3 (0.0-0.7); EOS % 2.2 % (0.0-4.0); GRAN # 5.3 K/mm3 (1.4-6.5); GRAN % 71.6 % (42.2-75.2); HEMATOCRIT 47.3 % (42.0-52.0); HEMOGLOBIN 15.2 g/dl (13.5-18.0); LYMPH # 1.2 K/mm3 (1.2-3.4); LYMPH % 16.4 % (20.0-51.0); MEAN CELL VOLUME 91 fl (80.0-100.0); MEAN CORPUSCULAR HEMOGLOBIN 29 pg (27-31); MEAN CORPUSCULAR HGB CONC 32 g/dl (33.0-37.0); MONO # 0.7 K/mm3 (0.1-0.6); PLATELET COUNT 143 K/mm3 (130-400); RED BLOOD COUNT 5.19 M/mm3 (4.20-5.60); REDCELL DISTRIBUTION WIDTH-CV 15.9 % (11.5-14.5)
[2021-11-09] MEDS ORDERED: CEFTIN500 MG PO (17:42)
[2021-11-09 17:55] LABS: ALBUMIN 3.8 gm/dL (3.4-4.8); BILIRUBIN,TOTAL 0.5 mg/dL (0.2-1.2); C-REACTIVE PROTEIN 0.24 mg/dL (0.00-0.50); CALCIUM 9.6 mg/dL (8.4-10.2); CREATININE, serum 1.61 mg/dL (0.72-1.25); POTASSIUM 4.6 mmol/L (3.5-4.5); TOTAL PROTEIN 6.6 gm/dL (6.2-8.1)
[2021-11-09 18:33] VITALS: BP 144/74; PULSE 57
== END 2021-11-09 18:33 | disposition home or self-care (01) ==
LOC: COL.ER 16:06
PROVIDERS: Emergency Medicine
DX: L03.031 Cellulitis of right toe (principal); Z87.891 Personal history of nicotine dependence; Z88.1 Allergy status to other antibiotic agents